=== PATIENT | male | born 1965 | race Hispanic/Latino ===

== ENCOUNTER 2023-04-05 22:07 | Emergency (ER) | payer OTHER ==
--- NOTE | 2023-04-06 00:46 | ER ---
Nurse's Notes [facility] Name: Jim Iverson Age: 57 yrs Sex: Male : 1965 Arrival Date: 04/05/2023 Time: 22:07 Bed 15 Private MD: Diagnosis: Acute bronchitis, unspecified Presentation: 04/05 22:44 Chief complaint: Patient states: Having flu like symptoms for 2 days. Coronavirus vc1 screen: Vaccine status: Patient reports being unvaccinated. chills, congestion, cough unrelated to allergies, fatigue, fever, headache, muscle pain, runny nose, sore throat, Client presents with at least one sign or symptom that may indicate coronavirus-19. Ebola Screen: Patient negative for fever greater than or equal to 101.5 degrees Fahrenheit, and additional compatible Ebola Virus Disease symptoms Patient denies exposure to infectious person. Patient denies travel to an Ebola-affected area in the 21 days before illness onset. No symptoms or risks identified at this time. Initial Sepsis Screen: Does the patient meet any 2 criteria? No. Patient's initial sepsis screen is negative. Does the patient have a suspected source of infection? No. Patient's initial sepsis screen is negative. Risk Assessment: Do you want to hurt yourself or someone else? Patient reports no desire to harm self or others. Onset of symptoms was April 03, 2023. 22:44 Method Of Arrival: Ambulatory vc1 22:44 Acuity: ESPINOZA 4 vc1 Triage Assessment: 22:47 General: Appears in no apparent distress. uncomfortable, ill, Behavior is calm, vc1 cooperative, appropriate for age. Pain: Complains of pain in headache, sore throat Pain does not radiate. Pain currently is 8 out of 10 on a pain scale. Aggravated by coughing. EENT: Nares with drainage noted Reports nasal discharge. Neuro: Level of Consciousness is awake, alert, obeys commands, Oriented to person, place, time, situation, Appropriate for age. Cardiovascular: No deficits noted. Respiratory: Airway is patent Respiratory effort is even, unlabored, Respiratory pattern is regular, symmetrical. GI: Patient currently denies abdominal pain, diarrhea, vomiting. : No deficits noted. No signs and/or symptoms were reported regarding the genitourinary system. Derm: No deficits noted. No signs and/or symptoms reported regarding the dermatologic system. Musculoskeletal: No deficits noted. No signs and/or symptoms reported regarding the musculoskeletal system. Historical: - Allergies: 22:46 NKDA; vc1 - Home Meds: 22:46 None [Active]; vc1 - PMHx: 22:46 None; vc1 - PSHx: 22:46 None; vc1 - Immunization history:: Client reports having NOT received the Covid vaccine. Flu vaccine is not up to date. - Social history:: Smoking status: Patient reports the use of cigarette tobacco products, smokes one pack cigarettes per day. Screenin:16 [facility] ED Fall Risk Assessment (Adult) History of falling in the last 3 months, la4 including since admission No falls in past 3 months (0 pts) Confusion or Disorientation No (0 pts) Intoxicated or Sedated No (0 pts) Impaired Gait No (0 pts) Mobility Assist Device Used No (0 pt) Altered Elimination No (0 pt) Score/Fall Risk Level 0 - 2 = Low Risk. [facility] ED Fall Risk Assessment (Adult) Score/Fall Risk Level 0 - 2 = Low Risk Oriented to surroundings, Maintained a safe environment, Provided non-skid footwear, Hourly rounding (assess needs \T\ fall precautionary measures) done. Abuse screen: Denies threats or abuse. Denies injuries from another. Nutritional screening: No deficits noted. Tuberculosis screening: No symptoms or risk factors identified. Assessment: 04/06 01:27 General: Appears in no apparent distress. Behavior is calm, cooperative, appropriate la4 for age. Respiratory: Reports cough that is productive, persistent Airway is patent Trachea midline Respiratory effort is even, unlabored, Respiratory pattern is regular, symmetrical, Breath sounds are clear bilaterally. the patient has mild shortness of breath. Vital Signs: 04/05 22:44 BP 126 / 83; Pulse 86; Resp 20; Temp 100.2; Pulse Ox 98% ; Weight 89.81 kg; Height 5 vc1 ft. 11 in. ; Pain 8/10; 04/06 01:27 BP 133 / 78; Pulse 80; Resp 20; Temp 97.8; Pulse Ox 98% on R/A; la4 04/05 22:44 Body Mass Index 27.62 (89.81 kg, 180.34 cm) vc1 04/05 22:44 Pain Scale: Adult vc1 [place] Coma Score: 01:27 Eye Response: spontaneous(4). Motor Response: obeys commands(6). Verbal Response: la4 oriented(5). Total: 15. ED Course: 04/05 22:12 Patient arrived in ED. kj1 22:31 Mary Hurtado FNP-C is [facility]. snw 22:31 Russ Madera MD is Attending Physician. snw 22:46 Triage completed. vc1 22:46 Arm band placed on left wrist. vc1 23:15 Drake Dee, RN is Primary Nurse. la4 23:16 Bed in low position. Call light in reach. Side rails up X 1. Provided Education on: la4 plan of care. Client placed on continuous cardiac and pulse oximetry monitoring. NIBP monitoring applied. 23:16 No provider procedures requiring assistance completed. la4 04/06 01:27 Patient did not have IV access during this emergency room visit. la4 Administered Medications: No medications were administered Medication: 01:27 VIS not applicable for this client. la4 Outcome: 00:45 Discharge ordered by . snw 01:27 Discharged to home ambulatory, la4 01:27 Condition: stable 01:27 Discharge instructions given to patient, family, Instructed on discharge instructions, follow up and referral plans. medication usage, Demonstrated understanding of instructions, follow-up care, medications, Prescriptions given X 3, 01:29 Patient left the ED. la4 Signatures: Mary Hurtado FNP-C FNP-[place] Aleksandr Talleydis kj1 Evy Jean Baptiste RN RN vc1 Drake Dee RN RN la4
--- NOTE | 2023-04-06 00:46 | EDPHYS ---
Physician Documentation [facility] Name: Jim Iverson Age: 57 yrs Sex: Male : 1965 Arrival Date: 04/05/2023 Time: 22:07 Bed 15 Private MD: ED Physician Russ Madera HPI: 04/06 00:42 This 57 yrs old Male presents to ER via Ambulatory with complaints of Flu snw Symptoms. 00:42 The patient or guardian reports cough, flu symptoms, low-grade fever, myalgias, no snw appetite. Onset: The symptoms/episode began/occurred acutely, yesterday. Associated signs and symptoms: Pertinent positives: sore throat. Severity of symptoms: At their worst the symptoms were moderate. The patient has experienced similar episodes in the past. The patient has not recently seen a physician. Historical: - Allergies: 04/05 22:46 NKDA; vc1 - Home Meds: 22:46 None [Active]; vc1 - PMHx: 22:46 None; vc1 - PSHx: 22:46 None; vc1 - Immunization history:: Client reports having NOT received the Covid vaccine. Flu vaccine is not up to date. - Social history:: Smoking status: Patient reports the use of cigarette tobacco products, smokes one pack cigarettes per day. ROS: 04/06 00:42 Eyes: Negative for injury, pain, redness, and discharge, snw Neck: Negative for injury, pain, and swelling, Cardiovascular: Negative for chest pain, palpitations, and edema, Respiratory: Negative for shortness of breath, wheezing, and pleuritic chest pain, + cough Abdomen/GI: Negative for abdominal pain, nausea, vomiting, diarrhea, and constipation, Back: Negative for injury and pain, : Negative for injury, bleeding, discharge, and swelling, MS/Extremity: Negative for injury and deformity, Skin: Negative for injury, rash, and discoloration, Neuro: Negative for headache, weakness, numbness, tingling, and seizure, Psych: Negative for depression, anxiety, suicide ideation, homicidal ideation, and hallucinations, Constitutional: Positive for body aches, fever, malaise, ENT: Positive for sore throat, Exam: 00:44 Constitutional: This is a well developed, well nourished patient who is awake, alert, snw and in no acute distress. Head/Face: Normocephalic, atraumatic. Eyes: Pupils equal round and reactive to light, extra-ocular motions intact. Lids and lashes normal. Conjunctiva and sclera are non-icteric and not injected. Cornea within normal limits. Periorbital areas with no swelling, redness, or edema. ENT: Nares patent. No nasal discharge, no septal abnormalities noted. Tympanic membranes are normal and external auditory canals are clear. Oropharynx with no redness, swelling, or masses, exudates, or evidence of obstruction, uvula midline. Mucous membranes moist. Neck: Trachea midline, no thyromegaly or masses palpated, and no cervical lymphadenopathy. Supple, full range of motion without nuchal rigidity, or vertebral point tenderness. No Meningismus. Chest/axilla: Normal chest wall appearance and motion. Nontender with no deformity. No lesions are appreciated. Cardiovascular: Regular rate and rhythm with a normal S1 and S2. No gallops, murmurs, or rubs. Normal PMI, no JVD. No pulse deficits. Respiratory: Lungs have equal breath sounds bilaterally, clear to auscultation and percussion. No rales, rhonchi or wheezes noted. No increased work of breathing, no retractions or nasal flaring. Abdomen/GI: Soft, non-tender, with normal bowel sounds. No distension or tympany. No guarding or rebound. No evidence of tenderness throughout. Back: No spinal tenderness. No costovertebral tenderness. Full range of motion. Skin: Warm, dry with normal turgor. Normal color with no rashes, no lesions, and no evidence of cellulitis. MS/ Extremity: Pulses equal, no cyanosis. Neurovascular intact. Full, normal range of motion. Neuro: Awake and alert, GCS 15, oriented to person, place, time, and situation. Cranial nerves II-XII grossly intact. Motor strength 5/5 in all extremities. Sensory grossly intact. Cerebellar exam normal. Normal gait. Psych: Awake, alert, with orientation to person, place and time. Behavior, mood, and affect are within normal limits. Vital Signs: 04/05 22:44 BP 126 / 83; Pulse 86; Resp 20; Temp 100.2; Pulse Ox 98% ; Weight 89.81 kg; Height 5 vc1 ft. 11 in. ; Pain 8/10; 04/06 01:27 BP 133 / 78; Pulse 80; Resp 20; Temp 97.8; Pulse Ox 98% on R/A; la4 04/05 22:44 Body Mass Index 27.62 (89.81 kg, 180.34 cm) vc1 04/05 22:44 Pain Scale: Adult vc1 [place] Coma Score: 01:27 Eye Response: spontaneous(4). Motor Response: obeys commands(6). Verbal Response: la4 oriented(5). Total: 15. MDM: 04/05 22:45 Patient medically screened. snw 04/06 00:44 Differential diagnosis: bronchitis, flu, URI. Antibiotic administration: Not indicated. snw Data reviewed: vital signs, nurses notes, lab test result(s), Flu: negative. I considered the following discharge prescriptions or medication management in the emergency department Medications were administered in the Emergency Department. See MAR. Historians other than the Patient: Spouse/Significant Other: Spouse. Counseling: I had a detailed discussion with the patient and/or guardian regarding the historical points, exam findings, and any diagnostic results supporting the discharge/admit diagnosis, lab results, the need for outpatient follow up, for definitive care, to return to the emergency department if symptoms worsen or persist or if there are any questions or concerns that arise at home. Special discussion: Based on the history and exam findings, there is no indication for further emergent testing or inpatient evaluation. I discussed with the patient/guardian the need to see the primary care provider for further evaluation of the symptoms. 04/05 23:50 Order name: Flu snw 04/05 23:50 Order name: Strep; Complete Time: 01:16 snw 04/06 00:34 Order name: SARS-COV-2 RT PCR; Complete Time: 01:16 EDMS 04/06 01:17 Order name: Throat Culture EDMS Administered Medications: No medications were administered Disposition: 03:23 Co-signature as Attending Physician, Russ Madera MD I agree with the assessment sp4 and plan of care. I reviewed the patient's care provided by the Advanced Practice Provider and agree with the diagnosis and treatment plan. Disposition Summary: 04/06/23 00:45 Discharge Ordered Notes: Location: Home snw Condition: Stable snw Diagnosis - Acute bronchitis, unspecified snw Followup: snw - With: Emergency Department - When: As needed - Reason: Worsening of condition Followup: snw - With: Private Physician - When: 2 - 3 days - Reason: Recheck today's complaints, Continuance of care, Re-evaluation by your physician Discharge Instructions: - Discharge Summary Sheet snw - Acute Bronchitis, Adult snw - Viral Respiratory Infection snw - Rehydration, Adult snw Forms: - Work release form snw - Medication Reconciliation Form snw - Thank You Letter snw - Antibiotic Education snw - Prescription Opioid Use snw - Patient Portal Instructions snw - Leadership Thank You Letter snw Prescriptions: - Zyrtec 10 mg Oral Tablet - take 1 tablet ORAL route once daily As needed; 20 tablet; Refills: 0, Product snw Selection Permitted - Prednisone 20 mg Oral Tablet - take 2 tablets ORAL route once daily for 5 days; 10 tablet; Refills: 0, Product snw Selection Permitted - Pepcid 20 mg Oral Tablet - take 1 tablet ORAL route once daily; 20 tablet; Refills: 0, Product Selection snw Permitted Signatures: Dispatcher [employer] EDMS Mary Hurtado, [facility] Evy Jean Baptiste RN RN vc1 Russ Madera MD MD sp4 Corrections: (The following items were deleted from the chart) 00:34 04/05 23:51 SARS-COV-2 Antigen Rapid+I.LAB.BRZ ordered. EDWA EDMS
[2023-04-06 01:33] VITALS: O2SAT 98
[2023-04-06 01:34] VITALS: BP 133/78; TEMP 97.8
== END 2023-04-06 01:29 | disposition home or self-care (01) ==
LOC: ER 22:07
DX: J20.9 Acute bronchitis, unspecified (principal); Z11.52 Encounter for screening for COVID-19; Z28.310 Unvaccinated for COVID-19
CPT/HCPCS: 87070; 87081; 87635; 87804; 99283

== ENCOUNTER 2024-06-12 16:22 | Emergency (ER) | payer OTHER ==
[2024-06-12 17:19] LABS: SARS-CoV-2 Antigen CONTROL BLUE LINE VIS/BG OK; SARS-CoV-2 Antigen Rapid Res Negative (Negative)
--- NOTE | 2024-06-12 17:35 | RAD REPORT ---
EXAM: Chest Pa And Lat (2 Views) HISTORY: 58 years Male Cough;Congestion COMPARISON: None. FINDINGS: LUNGS/PLEURA: The lungs are clear. No pleural effusions or pneumothorax. No pulmonary edema. MEDIASTINUM: The mediastinal silhouette is within normal limits CARDIAC: The cardiac silhouette is within normal limits. UPPER ABDOMEN: No significant abnormality. BONES: No acute abnormality. LINES/TUBES/OTHER: N/A IMPRESSION: No evidence of acute cardiopulmonary disease.
--- NOTE | 2024-06-12 18:03 | ER ---
Nurse's Notes [facility] Name: Jim Iverson Age: 58 yrs Sex: Male : 1965 Arrival Date: 06/12/2024 Time: 16:22 Bed Treatment Private MD: Diagnosis: Acute upper respiratory infection, unspecified Presentation: 06/12 16:39 Chief complaint: Patient states: he has been having a painful cough that started today. ap3 patient [place] and feels like being out in the wind has made it worse. patient currently rates his pain as an 8/10 on the pain scale. patient also reports body aches. Coronavirus screen: Client presents with at least one sign or symptom that may indicate coronavirus-19. Ebola Screen: No symptoms or risks identified at this time. Initial Sepsis Screen: Does the patient meet any 2 criteria? No. Patient's initial sepsis screen is negative. Does the patient have a suspected source of infection? No. Patient's initial sepsis screen is negative. Risk Assessment: Do you want to hurt yourself or someone else? Patient reports no desire to harm self or others. Onset of symptoms was June 12, 2024. 16:39 Method Of Arrival: Ambulatory ap3 16:39 Acuity: ESPINOZA 3 ap3 Triage Assessment: 16:41 General: Appears in no apparent distress. Behavior is calm, cooperative, appropriate ap3 for age. Pain: Complains of pain in chest Aggravated by cough]. Neuro: Level of Consciousness is awake, alert, obeys commands, Oriented to person, place, time, situation, Appropriate for age. Cardiovascular: Patient's skin is warm and dry. Respiratory: Reports pain with cough Airway is patent Respiratory effort is even, unlabored, Respiratory pattern is regular, symmetrical. Historical: - Allergies: 16:40 NKDA; ap3 - Home Meds: 16:40 None [Active]; ap3 - PMHx: 16:40 None; ap3 - Immunization history:: Client reports receiving the 2nd dose of the Covid vaccine. - Infectious Disease History:: Denies. - Social history:: Smoking status: Patient reports the use of cigarette tobacco products, smokes one-half pack cigarettes per day. Screenin:42 [facility] ED Fall Risk Assessment (Adult) History of falling in the last 3 months, ap3 including since admission No falls in past 3 months (0 pts) Confusion or Disorientation No (0 pts) Intoxicated or Sedated No (0 pts) Impaired Gait No (0 pts) Mobility Assist Device Used No (0 pt) Altered Elimination No (0 pt) Score/Fall Risk Level 0 - 2 = Low Risk Oriented to surroundings, Maintained a safe environment, Educated pt \T\ family on fall prevention, incl call for assistance when getting out of bed, Assessed \T\ reinforced patient's understanding of fall precautions, Hourly rounding (assess needs \T\ fall precautionary measures) done, Used ambulatory aids as needed (educated on \T\ assisted with), Used gait belt as appropriate. Abuse screen: Denies threats or abuse. Nutritional screening: No deficits noted. Tuberculosis screening: No symptoms or risk factors identified. Assessment: 18:08 General: Appears ill, well groomed, well developed, well nourished, Behavior is calm, me1 cooperative, appropriate for age, Reports he has been having a painful cough that started today. patient states [place] and feels like being out in the wind has made it worse. patient currently rates his pain as an 8/10 on the pain scale. patient also reports body aches. Pain: Complains of pain in chest Pain does not radiate. Pain currently is 8 out of 10 on a pain scale. Quality of pain is described as stabbing, Pain began suddenly, Is intermittent, Aggravated by with cough. Neuro: Level of Consciousness is awake, alert, obeys commands, Oriented to person, place, time, situation, Appropriate for age. Cardiovascular: Patient's skin is warm and dry. Respiratory: Reports cough that is persistent pain with cough Airway is patent Respiratory effort is even, unlabored, Respiratory pattern is regular, symmetrical. GI: No signs and/or symptoms were reported involving the gastrointestinal system. : No signs and/or symptoms were reported regarding the genitourinary system. EENT: No signs and/or symptoms were reported regarding the EENT system. Derm: Skin is intact, is healthy with good turgor, Skin is pink, warm \T\ dry. Musculoskeletal: No signs and/or symptoms reported regarding the musculoskeletal system. Vital Signs: 16:39 BP 148 / 90; Pulse 88; Resp 17; Temp 99.2(O); Pulse Ox 100% on R/A; Weight 95.25 kg; ap3 Height 5 ft. 11 in. ; Pain 8/10; 18:18 BP 137 / 89; Pulse 87; Resp 16; Temp 98.8; Pulse Ox 100% ; me1 16:39 Body Mass Index 29.29 (95.25 kg, 180.34 cm) ap3 16:39 Pain Scale: Adult ap3 ED Course: 16:29 Patient arrived in ED. mr 16:34 [facility] Tal[facility] kb 16:34 Abel Castillo MD is Attending Physician. kb 16:40 Triage completed. ap3 16:42 Arm band placed on right wrist. ap3 16:42 Patient maintains SpO2 saturation greater than 95% on room air. ap3 16:53 Strep Sent. ap3 16:53 SARS-COV-2 Antigen Rapid Sent. ap3 16:53 Flu Sent. ap3 17:33 Chest Pa And Lat (2 Views) XRAY In Process Unspecified. EDMO 17:58 Aimee Whitehead, RN is Primary Nurse. me1 18:08 Patient has correct armband on for positive identification. Bed in low position. Call me1 light in reach. Side rails up X2. Provided Education on: POC. Verbalized understanding.. 18:08 No provider procedures requiring assistance completed. me1 18:17 Patient did not have IV access during this emergency room visit. me1 Administered Medications: 18:13 Drug: Acetaminophen PO 1000 mg PO once Route: PO; me1 18:13 Follow up: Response: No adverse reaction me1 Medication: 18:08 VIS not applicable for this client. me1 Outcome: 18:03 Discharge ordered by . kb 18:17 Discharged to home ambulatory, with friend, me1 18:17 Condition: stable 18:17 Discharge instructions given to patient, Instructed on discharge instructions, follow up and referral plans. Demonstrated understanding of instructions, follow-up care, 18:18 Patient left the ED. me1 Signatures: Dispatcher [employer] EDMO Monika Talley FNP-C FNP-Mickie Li, Reg Reg LizzrebecaAyesha, RN RN ap3 Aimee Whitehead, RN RN me1 Corrections: (The following items were deleted from the chart) 18:08 16:39 Chief complaint: Patient states: he has been having a painful cough that started me1 today. patient states [place] and feels like being out in the wind has made it worse. patient currently rates his pain as an 8/10 on the pain scale. patient also reports body aches. ap3
--- NOTE | 2024-06-12 18:03 | EDPHYS ---
Physician Documentation [facility] Name: Jim Iverson Age: 58 yrs Sex: Male : 1965 Arrival Date: 06/12/2024 Time: 16:22 Bed Treatment Private MD: ED Physician Abel aCstillo HPI: 06/12 18:00 This 58 yrs old Male presents to ER via Ambulatory with complaints of Cough, kb Headache. 18:00 Pt is a 58 year old male who presents for cough, congestion and bodyaches that started kb today. Denies fever, nausea, vomiting, diarrhea. States being in the wind made symptoms worse. . Historical: - Allergies: 16:40 NKDA; ap3 - Home Meds: 16:40 None [Active]; ap3 - PMHx: 16:40 None; ap3 - Immunization history:: Client reports receiving the 2nd dose of the Covid vaccine. - Infectious Disease History:: Denies. - Social history:: Smoking status: Patient reports the use of cigarette tobacco products, smokes one-half pack cigarettes per day. ROS: 18:00 Constitutional: As per HPI kb Exam: 18:00 Constitutional: This is a well developed, well nourished patient who is awake, alert, kb and in no acute distress. Head/Face: Normocephalic, atraumatic. ENT: Moist Mucous membranes Cardiovascular: Regular rate Respiratory: Respirations even and unlabored. No increased work of breathing. Talking in full sentences Skin: Warm, dry with normal turgor. Normal color. MS/ Extremity: Pulses equal, no cyanosis. Neurovascular intact. Full, normal range of motion. Neuro: Awake and alert, GCS 15, oriented to person, place, time, and situation. Vital Signs: 16:39 BP 148 / 90; Pulse 88; Resp 17; Temp 99.2(O); Pulse Ox 100% on R/A; Weight 95.25 kg; ap3 Height 5 ft. 11 in. ; Pain 8/10; 18:18 BP 137 / 89; Pulse 87; Resp 16; Temp 98.8; Pulse Ox 100% ; me1 16:39 Body Mass Index 29.29 (95.25 kg, 180.34 cm) ap3 16:39 Pain Scale: Adult ap3 MDM: 16:34 Medical Screening Exam initiated kb 18:02 Data reviewed: vital signs, nurses notes. kb 18:02 Differential Diagnosis: Bronchitis Influenza Upper Respiratory Infection Pneumonia. I kb considered the following discharge prescriptions or medication management in the emergency department I discussed and recommended Over The Counter medications, Antibiotics: At this time antibiotics are not recommended, Antivirals: At this time, antivirals are not recommended. Counseling: I had a detailed discussion with the patient and/or guardian regarding the historical points, exam findings, and any diagnostic results supporting the discharge/admit diagnosis, lab results, radiology results, the need for outpatient follow up, a family practitioner, to return to the emergency department if symptoms worsen or persist or if there are any questions or concerns that arise at home. 06/12 16:41 Order name: Flu; Complete Time: 17:30 kb 06/12 16:41 Order name: SARS-COV-2 Antigen Rapid; Complete Time: 17:30 kb 06/12 16:42 Order name: Strep ap3 06/12 17:23 Order name: Throat Culture EDIL 06/12 16:41 Order name: Chest Pa And Lat (2 Views) XRAY; Complete Time: 17:38 kb Administered Medications: 18:13 Drug: Acetaminophen PO 1000 mg PO once Route: PO; me1 18:13 Follow up: Response: No adverse reaction me1 Disposition: 19:49 Co-signature as Attending Physician, Abel Castillo MD I reviewed the patient's care rt provided by the Advanced Practice Provider and agree with the diagnosis and treatment plan. Disposition Summary: 06/12/24 18:03 Discharge Ordered Notes: Location: Home kb Condition: Stable kb Diagnosis - Acute upper respiratory infection, unspecified kb Followup: kb - With: Emergency Department - When: As needed - Reason: Worsening of condition Followup: kb - With: Private Physician - When: 2 - 3 days - Reason: Recheck today's complaints, Continuance of care, Re-evaluation by your physician Discharge Instructions: - Discharge Summary Sheet kb - Upper Respiratory Infection, Adult, [id number] kb - Viral Respiratory Infection, [id number] kb Forms: - Medication Reconciliation Form kb - Antibiotic Education kb - Prescription Opioid Use kb - Patient Portal Instructions kb - Leadership Thank You Letter kb - Work release form me1 Signatures: Dispatcher [employer] EDMonika Villanueva, RINA-C Ayesha Vera RN RN [email or web address] Abel Castillo MD MD rt Aimee Whitehead, KIRA RN me1
[2024-06-12] MEDS ORDERED: ACETAMINOPHEN 500 MG TAB ONE (18:06)
[2024-06-12 23:24] VITALS: O2SAT 100
[2024-06-12 23:26] VITALS: BP 137/89; TEMP 98.8
== END 2024-06-12 18:18 | disposition home or self-care (01) ==
LOC: ER 16:22
DX: J06.9 Acute upper respiratory infection, unspecified (principal); Z11.52 Encounter for screening for COVID-19; F17.210 Nicotine dependence, cigarettes, uncomplicated
CPT/HCPCS: 36415; 71046; 87070; 87081; 87804; 87811; 99283